=== PATIENT | male | born 1985 | race Caucasian/White ===

== ENCOUNTER 2025-07-11 15:09 | Outpatient (AMB) | payer BC, SELFPAY ==
--- NOTE | 2025-07-11 15:05 | MHC.PC.OV ---
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 Prototyper Required: No Accompanied by: Self / Same As Patient Allergies No Known Allergies Allergy (Verified 07/13/25 10:32) Medication List - Last Reconciled 07/13/25 by Wil Altamirano MD albuterol sulfate 90 mcg/actuation (Ventolin HFA) 1 inh inhalation QID PRN Tobacco use date assessed: 07/11/25 Dental Screening Dental Screen Date: 07/11/25 Did you have a dental visit in the last 12 months?: No Did you have a dental problem in the last 6 months where you did not have access to dental care?: No HPI HPI Comments History of Present Illness Details History of Present Illness - The patient is a 39 year old male presenting to [facility] and for management of multiple chronic and acute issues. - He has a history of arrhythmogenic right ventricular cardiomyopathy diagnosed in 2012 after experiencing presyncope and cyanosis during exercise. - His prior in store demonstrator recommended yearly ultrasounds and an MRI every three years. - The last ultrasound in the past year showed new mild pulmonary hypertension and left-sided dysfunction. - He has not required an ICD and has not had arrhythmias. - Regarding his asthma, he has had worsening symptoms with wheezing since moving to [place] from the [place]. - He has a history of severe asthma attacks, with triggers including damp mold. - He reports a history of decreased libido for the last 3 years, which has gradually worsened over the past 5-10 years. - He has a single male partner for about a year and notes the lack of desire is not specific to his partner. - He previously tried a home testosterone test which was around average, and a testosterone injection in [place] had no effect on his libido. - He also reports new left testicular pain with tenderness to touch for the past two years. - The patient has an anal fissure that is not healing; it was previously related to anal sex but has recurred and persisted for over three weeks despite abstinence. 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 - His psychiatric history includes a brief trial of an antidepressant in college and bupropion in medical school, which caused agitation. - Past surgical history includes removal of a penile cyst by a urologist, but not for low testosterone. 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 - Relationship Status: He has been with his male partner for about one year. - Sexual Activity: He is sexually active with men. Results - At-home testosterone test: previously showed results that were around average. - Cardiac ultrasound (last year): showed new mild pulmonary hypertension and left heart dysfunction. [facility] Family History (Updated 07/11/25 @ 15:16 by MERNA Lee) Father Diabetes BP (high blood pressure) A-fib Chronic kidney disease Mother High cholesterol Hypothyroid Social History (Updated 07/11/25 @ 15:16 by MERNA Lee) Housing: House Alcohol intake: current Alcohol intake frequency: does not drink Patient Tobacco Use Status: Never used Tobacco service: No Current occupational status: employed Cognitive needs: No Hearing needs: No Vision needs: Yes (rx glasses) Questionnaire PHQ-9 Over the last 2 weeks, how often have you been bothered by any of the following problems? 1. Little interest or pleasure in doing things: not at all 2. Feeling down, depressed, or hopeless: not at all 3. Trouble falling or staying asleep, or sleeping too much: not at all 4. Feeling tired or having little energy: not at all 5. Poor appetite or overeating: not at all 6. Feeling bad about yourself - or that you are a failure or have let yourself or your family down: not at all 7. Trouble concentrating on things, such as reading the newspaper or watching television: not at all 8. Moving or speaking so slowly that other people could have noticed. Or the opposite - being so fidgety or restless that you have been moving around a lot more than usual: not at all 9. Thoughts that you would be better off or of hurting yourself in some way: not at all Total score: 0 Source: Developed by Drs. German Leung, Arti Almaraz, Charly Rain and colleagues, with an educational [place] from [employer]. Thrive Questionnaire Date Thrive assessed: 07/11/25 I am a: Patient What is your living situation today?: I have a steady place to live Within the past 12 months, did the food you bought not last and you didn't have the money to get more?: Never true Within the past 12 months, did you worry whether your food would run out before you got money to buy more?: Never true Do you have trouble paying for medicines?: No Do you have trouble getting transportation to medical appointments?: No Do you have trouble paying your heating and electricity bill?: No Do you have trouble taking care of your child, family member or friend?: No Do you have trouble with day-to-day activities such as bathing, preparing meals, shopping, managing finances, etc.?: No Are you currently unemployed and looking for a job?: No Are you interested in more education?: No Please select the resources that you would like help with: None THRIVE Score: 0 AUDIT C Alcohol Use Questionnaire (AUDIT-C) 1. How often do you have a drink containing alcohol?: Never 3. How often do you have six or more drinks on one occasion?: Never Total Score: 0 MOJGAN-7 AMB Questionnaire MOJGAN-7 Date MOJGAN - 7 assessed: 07/11/25 Feeling nervous, anxious, or on edge: 0 = Not at all Not being able to stop or control worryin = Not at all Worrying too much about different things: 0 = Not at all Trouble relaxin = Not at all Being so restless that it is hard to sit still: 0 = Not at all Becoming easily annoyed or irritable: 0 = Not at all Feeling afraid as if something awful might happen: 0 = Not at all Total MOJGAN-7 score (0-4 normal; 5-9 mild; 10-14 moderate; 15-21 severe): 0 Source: Developed by Drs. German Leung, Arti Almaraz, Charly Rain and colleagues, with an educational [place] from [employer]. Review of Systems Narrative Review of Systems - Constitutional: Denies depression. - Eyes: Reports blindness in the right eye since childhood. - Respiratory: Reports wheezing. - Cardiovascular: Reports a history of presyncope and cyanosis with exercise. - Gastrointestinal: Reports persistent, sometimes sore, anal fissure. - Genitourinary: Reports decreased libido for approximately 3 years, which has worsened over time. Reports left testicular pain for the past 2 years. - Integumentary: Reports eczema and a new rash on his back that he questions could be psoriasis. - Neurological: Reports sleeping well, about seven hours a night. Denies waking with racing thoughts. - Psychiatric: Reports his anxiety is better than previously. Denies depression. Does not feel his mental health is poor. Physical exam (Primary Care) Vital Signs: Last Vital Signs Temp 97.4 F 07/11/25 15:11 Pulse 70 07/11/25 15:11 Resp 14 07/11/25 15:11 BP 111/61 07/11/25 15:11 Pulse Ox 99 07/11/25 15:11 Oxygen Delivery Method Room Air 07/11/25 15:11 BMI result Body Mass Index 27.3 Tobacco/Smoking Status: Tobacco use Status Tobacco use date assessed 07/11/25 07/11/25 15:07 Patient Tobacco Use Status Never used Tobacco 07/11/25 15:16 PHQ-9: PHQ-9 Score PHQ-9: Total score 0 07/13/25 10:36 Thrive Assessment: Date of Thrive Assessment Date Thrive assessed 07/11/25 07/11/25 15:07 Narrative Physical Exam General: Appearance normal, both eyes and all related structures Nutritional Appearance: Well nourished Orientation/consciousness: Patient oriented x3 Limitations: No limitations Head: Normal to inspection Neck: Normal visual inspection Chest: Normal palpation of entire chest wall Respiratory: Wheezing noted, worse symptoms than in years Neurology: Patient oriented x3 Office Procedures Flu Questionnaire Does the patient have a severe egg allergy?: No Does the patient have severe life threatening allergies?: No Does the patient have a fever or illness today?: No Has the patient ever had Guillain-P[place] Syndrome?: No Has the patient ever had any past reaction to a flu shot?: No Immunizations Fluarix [id number] (PF) 45 mcg (15 mcg x 3)/0.5 mL IM syringe Performing Provider: Wil Altamirano MD [facility] Administered by: MERNA Lee on 07/11/25 15:16 Dose Route Admin Location Dispensed Lot Number Expiration Date [facility] Garment Worker 0.5 mL IM Left Deltoid 0.5 mL [id number] 01/24/26 60162-107-32 [employer] VIS Given Date VIS Provided VIS Publication Date 07/11/25 Single Vaccine 25 Eligibility Eligibility Date Funding Source Not VF Eligible 07/11/25 Private Coding Level of Care Code New Pt Level 4 (02718) Add On Problem Visit Only Diagnoses Anal fissure K60.2 Assessment & Plan Assessment & Plan (1) Anal fissure: Code(s): K60.2 - Anal fissure, unspecified Plan: Referral to colorectal surgeon at [facility] per patient's request. Plan Plan - Will place a referral to cardiology for management of arrhythmogenic right ventricular cardiomyopathy. An MRI may be ordered by the specialist. - For asthma, a prescription for albuterol will be sent. - For left testicular pain, a testicular ultrasound will be ordered to investigate for possible epididymitis or inflamed spermatic cord prior to considering antibiotics. - For the non-healing anal fissure, a referral will be placed to an outside general surgeon for evaluation. - For decreased libido, a referral to urology will be considered for further evaluation, possibly with Dr. Blackmon or an outside provider. - Regarding eye care, the patient was advised he does not need a referral for ophthalmology and can schedule his own appointment. - Laboratory studies have been ordered, including a complete blood count, basic metabolic panel, C-reactive protein, lipid panel, liver panel, testosterone, HIV, and syphilis testing. The patient was advised to have these drawn while fasting. - Follow-up is scheduled in six months. Discussion Notes I advised the patient on the plan for his multiple concerns. For his asthma, I explained that if he needs to use the albuterol inhaler more than three times a week, he would require maintenance medication. Regarding the low libido, I discussed that while low testosterone can be a factor, it is not always correlated, and common causes like anxiety and depression do not seem to be present in his case. I noted that modern treatment for low testosterone has moved away from routine injections due to limited efficacy and side effects. For his left testicular pain, I explained that we would start with an ultrasound to look for common culprits like epididymitis or an inflamed spermatic cord, which could be treated with antibiotics if confirmed. We discussed the referral for his anal fissure, and I respected his preference to see a surgeon outside of his workplace. I instructed him on how to obtain his fasting blood work and how to follow up regarding referrals using [employer] if he does not hear back in a timely manner. Patient Instructions - You can make an appointment with an eye doctor (automated cutting machine operator) yourself; you do not need a referral. If you have trouble getting an appointment, please let me know through the patient portal. - I have sent a prescription for an albuterol inhaler for your asthma to your pharmacy. If you find you are using it more than three times a week, you will need a daily maintenance medication, so please let me know. - I have ordered blood tests for you. Please go to the lab to have your blood drawn. It is best to do this in the morning before eating (fasting). - I have put in a referral for you to see a surgical instrument repair specialist (in store demonstrator). Their office should call you to schedule an appointment. If you do not hear from them or the appointment is too far out, please contact me through [employer]. - I have ordered an ultrasound of your testicle to check for the cause of your left-sided pain. - I will refer you to a surgeon for your anal fissure. As you requested, this will be with a doctor outside of your hospital. - We can discuss a referral to a urology specialist for your low libido after your test results come back. - Please schedule a follow-up appointment in about six months. Orders: Orders Influenza [id number] Immunization 07/11/25 Z23 - Encounter for immunization Basic Metabolic Panel 07/11/25 E78.5 - Hyperlipidemia, unspecified Lipid Panel 07/11/25 E78.5 - Hyperlipidemia, unspecified Liver Panel 07/11/25 E78.5 - Hyperlipidemia, unspecified Syphilis Screen 07/11/25 E78.5 - Hyperlipidemia, unspecified Complete Blood Count no Diff 07/11/25 E78.5 - Hyperlipidemia, unspecified C Reactive Protein 07/11/25 E78.5 - Hyperlipidemia, unspecified HIV Ab/Ag 07/11/25 E78.5 - Hyperlipidemia, unspecified Referrals Cardiology Referral I42.9 - Cardiomyopathy, unspecified General Surgery Referral K60.2 - Anal fissure, unspecified Medications: New albuterol sulfate 90 mcg/actuation (Ventolin HFA) 1 inh inhalation QID PRN 8.5 grams 1RF shortness of breath or wheezing
[2025-07-11 15:11] VITALS: BP 111/61; PULSE 70; RESP 14; TEMP 36.3; O2SAT 99; BMI 27.3
== END 2025-07-11 16:07 | disposition home or self-care (01) ==
LOC: HO.HMCSH 15:09
PROVIDERS: PCP Internal Medicine; Visit Provider Internal Medicine
DX: Z23 Encounter for immunization (principal)

== ENCOUNTER → 2025-07-11 15:09 | Outpatient (BNVA) | payer OTHER, SELFPAY | PROVIDERS: PCP Internal Medicine; Visit Provider Internal Medicine | DX: Z23 Encounter for immunization (principal); K60.2 Anal fissure, unspecified | CPT/HCPCS: 90471; 90656; 96127 ==

== ENCOUNTER 2025-07-15 07:03 | Outpatient (REF) | payer BC, SELFPAY ==
--- OUTSIDE RECORDS SUMMARY | 2010-02-06 03:30 | XMS_ITS | Continuity of Care Document ---
Author Organization [facility] Address [address] [place] [address] Phone Care Team Providers Care Sand Temperer Name Role Phone Tanika Broderick MD Unavailable Unavailable Advance Directives Directive Yes / No Effective Date File Name Resuscitation Not Answered N/A N/A Life Support Not Answered N/A N/A Intubation Not Answered N/A N/A Antibiotics Not Answered N/A N/A IV Fluid Support Not Answered N/A N/A Tube Feed Not Answered N/A N/A Other Directive N/A N/A WARNING:The information contained in this section is historical and is provided for information only and does not constitute a legal document or any assurance that the information is still accurate. Please verify the information with the arredondo of the legal document before using it for clinical purposes. Encounters Encounter Description Practice Location Reason(s) For Visit Diagnoses Date Provider Providers Copied on Encounter [facility], [address], [place], [id number], tel:[phone] [facility] STI male (chief complaint) SCREEN FOR VENEREAL DIS Davie Sagastume. [address], [place], [id number], [place]. tel:[phone] Family History Family Member Type Diagnosis Age At Onset No Information Payers Payer name Insurance type Covered democrat ID Authoriza tion(s) No Information Social History Type Description Quantity Date Captured Comments Alcohol Use Details Unknown Caffeine Use Details Unknown Tobacco Use Status No Information Smoking Status No Information Sex Male Sexual Orientation Lesbian, gonzalez or homosexual Chief Complaint And Reason For Visit From encounter dated '02/06/2010 08:30'. STI male (chief complaint) Reason For Referral Reason For Referral No Information History Of Present Illness Encounter Date Complaint History Of Prese nt Illness No Information Functional Status Date Functional Assessmen t No Information Instructions Date Instruction Additional Infor mation No Information Assessments Type Assessment Date No Information Patient Care Teams Name Effective Dates (start - stop) Status Members No Information
--- OUTSIDE RECORDS SUMMARY | 2024-03-01 04:28 | XMS_ITS | Continuity of Care Document ---
Author Organization [facility] Address [address] [address] [place] [address] Phone Care Team Providers Care Spooling Machine Operator Name Role Phone Update, [employer] Unavailable Unavailable Advance Directives Directive Yes / No Effective Date File Name No Information Encounters Encounter Description Practice Location Reason(s) For Visit Diagnoses Date Provider Providers Copied on Encounter [facility], [address] [address], [place], [place], [id number], tel:[phone] [facility] No Information 4 Update [employer]. [address] [facility] [place], [place], [id number] . tel:[phone] Family History Family Member Type Diagnosis Age At Onset No Information Payers Payer name Insurance type Covered green party ID Authoriza tion(s) No Information Social History Type Description Quantity Date Captured Comments Sex Male Smoking Status No Information Chief Complaint And Reason For Visit No Information Reason For Referral Reason For Referral No [...]
[2025-07-15 08:17] LABS: Hematocrit 41.4 % (42.0-52.0); Hemoglobin 14.0 g/dl (14.0-18.0); Mean Corpuscular HGB Conc 33.8 g/dl (31.0-36.0); Mean Corpuscular Hemoglobin 28.6 pg (27.0-33.0); Mean Corpuscular Volume 84.7 fL (80.0-98.0); NRBC Abs Auto 0.000 X10*3/uL (0.0-0.012); NRBC Pct Auto 0.0 /100WBC (0.0-0.2); Platelet Count 183 X10*3/uL (160-400); Red Blood Count 4.89 X10*6/uL (4.60-5.80); White Blood Count 5.5 X10*3/uL (4.8-10.8)
[2025-07-15 08:34] LABS: Alanine Aminotransferase 27 U/L (0-40); Albumin Level 4.5 g/dL (3.5-5.0); Alkaline Phosphatase 60 U/L (39-117); Anion Gap 11 (12-20); Aspartate Amino Transferase 31 U/L (5-37); Blood Urea Nitrogen 19 mg/dL (9-16); Calcium 9.6 mg/dL (8.4-10.2); Carbon Dioxide 27 mmol/L (22-29); Chloride 107 mmol/L (96-108); Cholesterol 188 mg/dL (<200); Estimated Glomerular Filt Rate > 60; HDL Cholesterol 43 mg/dL (>40); Potassium 3.8 mmol/L (3.3-5.1); Sodium 141 mmol/L (135-145); Total Protein 7.2 g/dL (6.5-8.0); Triglycerides 90 mg/dL (<150)
[2025-07-15 09:42] LABS: HIV Num 1 0.07 S/CO (0.00-0.99)
[2025-07-15 09:47] LABS: Syphilis Screen Nonreactive (Nonreactive)
== END 2025-07-15 07:04 | disposition home or self-care (01) ==
LOC: HO.LAB 07:03
PROVIDERS: PCP Internal Medicine; Visit Provider Internal Medicine
DX: Z11.4 Encounter for screening for human immunodeficiency virus [HIV] (principal); E78.5 Hyperlipidemia, unspecified
CPT/HCPCS: 36415; 80048; 80061; 80076; 85027; 86140; 86780; 87389